=== PATIENT | male | born 1975 | race Caucasian/White ===

== ENCOUNTER 2016-10-24 16:04 | Emergency (ER) | payer MEDICAID ==
[~2016-10-24] VITALS: Ht 175.3 cm; Wt 86.4 kg
[2016-10-24 16:23] VITALS: BP 140/56
[2016-10-24] MEDS ORDERED: CefTRIAXone SODIUM 1 GM/VIAL IM ONE (18:30)
[2016-10-24] MEDS ORDERED: LIDOCAINE HCL/PF 1% 2 ML VIAL IM ONE (18:30)
[2016-10-24] MEDS ORDERED: BACITRACIN 0.9 GM PACKET OINTMENT TP ONE (18:30)
[2016-10-24] MEDS ORDERED: HYDROCODONE/ACETAMINOPHEN 5-325 MG TABLET PO ONE (18:30)
[2016-10-24] MEDS ORDERED: POVIDONE-IODINE 10% 15 ML SOLUTION UD TP ONE (18:30)
== END 2016-10-24 19:25 | disposition home or self-care (01) ==
LOC: EMS 16:05
DX: L02.413 Cutaneous abscess of right upper limb (principal); L03.113 Cellulitis of right upper limb; L08.9 Local infection of the skin and subcutaneous tissue, unspecified
CPT/HCPCS: 96372; 99284; J0696; J3490

== ENCOUNTER 2018-05-17 12:41 | Emergency (ER) | payer MEDICAID ==
[~2018-05-17] VITALS: Ht 180.3 cm; Wt 84.1 kg
[2018-05-17 12:44] VITALS: BP 113/81
== END 2018-05-17 18:11 | disposition left against medical advice (07) ==
LOC: EMS 12:42
DX: R42 Dizziness and giddiness (principal); R11.2 Nausea with vomiting, unspecified; Z53.21 Procedure and treatment not carried out due to patient leaving prior to being seen by health care provider